=== PATIENT | female | born 1990 | race Caucasian/White ===

== ENCOUNTER 2018-01-01 22:50 | Emergency (ER) | payer MEDICAID, SELFPAY ==
[2018-01-01 22:50] VITALS: BP 126/80; PULSE 71; RESP 18; TEMP 35.5; O2SAT 96; BMI 56.2
[2018-01-01 23:05] VITALS: RESP 16
--- NOTE | 2018-01-01 23:35 | RAD_ITS ---
STUDY: X-RAY - RIGHT ANKLE REASON FOR EXAM: Female, 27 years old. Status post fall. Lateral right ankle pain. Limping. TECHNIQUE: 3 view(s) of the ankle. COMPARISON: X-ray foot. FINDINGS: Normal visualized distal tibia and fibula. Normal medial and lateral malleoli. Normal tibiotalar articulation and ankle mortise. Normal visualized talus and calcaneus. The visualized subtalar, talonavicular, calcaneocuboid and tarsal articulations are normal. The soft tissue structures are unremarkable. RAD/Ankle min 3 Views IMPRESSION: Normal x-ray examination of the ankle. Electronically Signed: Ronald Damon MD at 0:02 EST , Service support ,
--- NOTE | 2018-01-01 23:35 | RAD_ITS ---
STUDY: X-RAY - PELVIS AND LEFT HIP REASON FOR EXAM: Female, 27 years old. Patient fell. Left hip pain. Limping. TECHNIQUE: 3 views of the pelvis and hip. COMPARISON: None. FINDINGS: There is a non-specific bowel gas pattern. Normal visualized soft tissue structures. Normal bilateral iliac wings, sacroiliac joints and visualized sacrum. Normal bilateral superior and inferior pubic rami. Normal pubic symphysis. Normal bilateral ischial tuberosities. Normal visualized femoral head. Normal acetabulum. Normal hip joint. RAD/HIP, UNI W/ Pelvis 2-3 Views IMPRESSION: Normal x-ray examination of the pelvis and hip. Electronically Signed: Ronald Damon MD at 0:11 EST , Service support ,
--- NOTE | 2018-01-01 23:35 | RAD_ITS ---
STUDY: X-RAY - RIGHT FOOT CLINICAL: Female, 27 years old. Status post fall. Pain in the lateral foot and ankle. TECHNIQUE: 3 view(s) of the foot. COMPARISON: X-ray ankle. FINDINGS: Normal talus, calcaneus, and tarsal bones. Normal visualized subtalar, talonavicular, calcaneocuboid, tarsal and tarsometatarsal articulations. Normal metatarsi. 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 Normal tibial and fibular sesamoid bones. Normal interphalangeal joint of the great toe. Normal phalanges of the great toe. Normal second through fifth metatarsophalangeal joints. Normal interphalangeal joints and phalanges of the lesser toes. The soft tissue structures are unremarkable. RAD/Foot min 3 Views IMPRESSION: No demonstrated fracture, dislocation, or destructive osseous lesion. Electronically Signed: Ronald Damon MD at 0:03 EST , Service support ,
[2018-01-01] MEDS: Ibuprofen 600 MG Tablet PO (23:53)
[2018-01-01] MEDS: HYDROcodone Bitartrate/Apap 5/325 Tablet PO (23:53)
--- NOTE | 2018-01-02 | ED.VISSUMM ---
- ER Visit Summary Date of Service: 01/02/18 Chief Complaint: Fall left hip and right ankle injury History of Present Illness: The patient is a 27 F patient presents mechanical fall prior to arrival. Stepping over a baby gate falling onto her belly. No head injuries or loss of consciousness. States pain in left hip right ankle and foot. No history of fractures. No history of gastric ulcers or kidney injury. x2 in the past. States limping on left side pain mostly in left hip. No paresthesias. Physical Examination: General: Alert and oriented ?3, no acute distress HEENT: Normocephalic, atraumatic. Moist mucosa membranes Neck: supple, nontender. Cardiovascular: Regular rate and rhythm, no murmurs Respiratory: Normal breath sounds, symmetric, no distress Abdomen: Soft, nontender, nondistended Extremities: Left lower extremity: Tender palpation left lateral hip. No shortening or deformities. Negative logroll. No knee pain. No ankle pain. Neurovascular intact distally. There is no tenderness at the issue him. Right lower extremity no knee pain. Tender lateral malleolus and midfoot and proximal fifth base. Skin intact. Neurovascular intact. Neuro: no focal neurological deficits. Test Results: X-ray left hip and pelvis: No fracture or dislocation. Right ankle and foot: No fracture dislocation. Emergency Department Course and Treatment: Patient treated with Motrin and [place], x-rays reviewed myself shows no fracture or dislocation. No pelvic fractures. Aircast of the ankle, crutches. Should be treated with pain medicines. Oarrs report checked. Follow-up with her PCP. All questions were answered. Treatment Plan: [] Disposition: Discharge Impression:1. Left hip contusion 2. Right ankle sprain 3. Right foot sprain This note was generated with [employer] dictation software. It may contain incorrect words, spelling, and punctuation that were not noted in review of the chart prior to signing ED Disposition - Plan for ED Patient: Disposition: Home or Assisted Living Chief Complaint: Lower Extremity Injury Diagnosis: Contusion of left hip, Right ankle sprain, Right foot sprain Instructions: ED Contusion Hip, ED Sprain Foot, ED Sprain Ankle W X Ray Prescriptions: Hydrocodone Bitart/Apap 5-325 [[place] 5MG-325MG] 1 tablet PO Q6H PRN PRN 3 Days #10 tablet PRN Reason: Pain Ibuprofen 600 mg PO 4X/DAY PRN #20 tablet PRN Reason: Pain Referrals: Care Physician,No Primary [Primary Care Provider] - Rajiv Camara MD [STAFF PHYSICIAN] - 3-5 Days if not improving
--- NOTE | 2018-01-02 00:05 | ED.DCSUM_ITS ---
- ER Visit Summary Date of Service: 01/02/18 Chief Complaint: Fall left hip and right ankle injury History of Present Illness: The patient is a 27 F patient presents mechanical fall prior to arrival. Stepping over a baby gate falling onto her belly. No head injuries or loss of consciousness. States pain in left hip right ankle and foot. No history of fractures. No history of gastric ulcers or kidney injury. x2 in the past. States limping on left side pain mostly in left hip. No paresthesias. Physical Examination: General: Alert and oriented ?3, no acute distress HEENT: Normocephalic, atraumatic. Moist mucosa membranes Neck: supple, nontender. Cardiovascular: Regular rate and rhythm, no murmurs Respiratory: Normal breath sounds, symmetric, no distress Abdomen: Soft, nontender, nondistended Extremities: Left lower extremity: Tender palpation left lateral hip. No shortening or deformities. Negative logroll. No knee pain. No ankle pain. Neurovascular intact distally. There is no tenderness at the issue him. Right lower extremity no knee pain. Tender lateral malleolus and midfoot and proximal fifth base. Skin intact. Neurovascular intact. Neuro: no focal neurological deficits. Test Results: X-ray left hip and pelvis: No fracture or dislocation. Right ankle and foot: No fracture dislocation. Emergency Department Course and Treatment: Patient treated with Motrin and [place], x-rays reviewed myself shows no fracture or dislocation. No pelvic fractures. Aircast of the ankle, crutches. Should be treated with pain medicines. Oarrs report checked. Follow-up with her PCP. All questions were answered. Treatment Plan: [] Disposition: Discharge Impression:1. Left hip contusion 2. Right ankle sprain 3. Right foot sprain This note was generated with [employer] dictation software. It may contain incorrect words, spelling, and punctuation that were not noted in review of the chart prior to signing ED Disposition - Plan for ED Patient: Disposition: Home or Assisted Living Chief Complaint: Lower Extremity Injury Diagnosis: Contusion of left hip, Right ankle sprain, Right foot sprain Instructions: ED Contusion Hip, ED Sprain Foot, ED Sprain Ankle W X Ray Prescriptions: Hydrocodone Bitart/Apap 5-325 [[place] 5MG-325MG] 1 tablet PO Q6H PRN PRN 3 Days #10 tablet PRN Reason: Pain Ibuprofen 600 mg PO 4X/DAY PRN #20 tablet PRN Reason: Pain Referrals: Care Physician,No Primary [Primary Care Provider] - Rajiv Camara MD [STAFF PHYSICIAN] - 3-5 Days if not improving
[2018-01-02 00:31] VITALS: BP 101/56; PULSE 67; RESP 16; O2SAT 99
== END 2018-01-02 00:31 | disposition home or self-care (01) ==
PROVIDERS: Emergency Provider Emergency Medicine
DX: S93.401A Sprain of unspecified ligament of right ankle, initial encounter (principal); S93.601A Unspecified sprain of right foot, initial encounter; S70.02XA Contusion of left hip, initial encounter; W18.09XA Striking against other object with subsequent fall, initial encounter; Y93.89 Activity, other specified; F32.9 Major depressive disorder, single episode, unspecified; Z72.0 Tobacco use
CPT/HCPCS: 73502; 73610; 73630; 99284

== ENCOUNTER 2018-04-02 00:26 | Emergency (ER) | payer MEDICAID, SELFPAY ==
[2018-04-02 00:28] VITALS: BP 158/89; PULSE 94; RESP 18; TEMP 36.4; O2SAT 98; BMI 56.3
[2018-04-02 01:31] LABS: Internal QC Validated? YES +Cl - CLEAR BKGD; Pregnancy, Urine Negative Negative
--- NOTE | 2018-04-02 01:40 | ED.DCSUM_ITS ---
- ER Visit Summary Date of Service: 04/02/18 Chief Complaint: [] Nausea with possible History of Present Illness: The patient is a 28 F with the above symptoms for last 2 weeks she felt intermittently nauseous. She took a test at home and thought it might be part positive. She does have a Norplant in her arm. She does not have periods. Denies any symptoms currently Physical Examination: [] Vital signs reviewed General: Well-nourished well-developed Head: Normocephalic atraumatic Eyes: Pupils equal round and reactive to light extraocular movements intact ENT: TMs clear no hemotympanum no trauma Neck: Nontender full range of motion Cardiovascular: Regular rate rhythm no murmurs normal S1-S2 Respiratory: No distress clear to auscultation bilaterally chest nontender Abdomen: Soft nontender nondistended normal bowel sounds no masses Back: Nontender no CVA tenderness Extremities: Nontender active range of motion ?4 extremities no trauma Skin: Normal color no trauma Neuro alert oriented cranial nerves II through XII intact normal strength sensation reflexes Test Results: [] Emergency Department Course and Treatment: [] Urine negative. Patient reassured. Will be discharged. Does not want anything for her symptoms that have resolved Treatment Plan: [] Disposition: [] Impression: [] Intermittent nausea check This note was generated with [employer] dictation software. It may contain incorrect words, spelling, and punctuation that were not noted in review of the chart prior to signing ED Disposition - Plan for ED Patient: Referrals: Care Physician,No Primary [Primary Care Provider] -
--- NOTE | 2018-04-02 01:41 | ED.DEP ---
ED Disposition - Plan for ED Patient: Disposition: Home or Assisted Living Instructions: ED Nausea Vomiting Referrals: Care Physician,No Primary [Primary Care Provider] -
== END 2018-04-02 01:54 | disposition home or self-care (01) ==
PROVIDERS: Emergency Provider Emergency Medicine
DX: R11.0 Nausea (principal); Z32.02 Encounter for pregnancy test, result negative
CPT/HCPCS: 81025; 99282